=== PATIENT | male | born 1985 | race Caucasian/White ===

== ENCOUNTER 2016-12-19 12:17 | Emergency (ER) | payer OTHER ==
[~2016-12-19] VITALS: Ht 185.4 cm; Wt 99.8 kg
[~2016-12-19 12:17] MED LIST: AMOXIL500 MG PO; BACTRIM DS 8001 TAB PO; ENDOCET 325 MG-1 TA1 PO; MEDROL DOSEPAK1 PAC PO; PERCOCET 5-3251 EACH PO; PROAIR HFA0.09 MG/Ac INH; VISTARIL50 M1 PO
[2016-12-19 12:49] LABS: ABSOLUTE BASOPHIL COUNT 0 /CUMM (0.0-0.2); ABSOLUTE EOSINOPHIL COUNT 0 /CUMM (0.0-0.7); ABSOLUTE GRANULOCYTE CT 4.3 /CUMM (1.4-6.5); ABSOLUTE MONOCYTE COUNT 0.4 /CUMM (0.10-0.60); BASOPHIL % 0.2 % (0.0-2.0); EOSINOPHIL % 0.2 % (0-5); GRANULOCYTE % 75.5 % (42.2-75.2); HEMATOCRIT 42.1 % (42-52); MEAN CORPUSCULAR HGB 39.4 PG (27.0-31.0); MEAN CORPUSCULAR HGB CONC 34.3 G/DL (33.0-37.0); MEAN CORPUSCULAR VOLUME 114.9 FL (80.0-94.0); MEAN PLATELET VOLUME 7.8 FL (7.4-10.4); PLATELET COUNT 163 /CUMM (130-400); RED BLOOD CELL CT 3.67 /CUMM (4.70-6.10); WHITE BLOOD CELL COUNT 5.7 /CUMM (4.8-10.8)
--- NOTE | 2016-12-19 13:22 | ED GI/GU/ABDOMINAL COMPLAINT ---
History of Present Illness General Chief Complaint: Nausea, Vomiting, Diarrhea Stated Complaint: VOMITING X 2WEEKS Source: patient Exam Limitations: no limitations Vital Signs & Intake/Output Vital Signs & Intake/Output Vital Signs Date Time Temp Pulse Resp B/P B/P Pulse O2 O2 Flow FiO2 Mean Ox Delivery Rate 12/19 1617 99.5 112 18 153/92 12/19 1616 99.5 112 20 153/92 98 Room Air 12/19 1418 98.8 112 18 135/69 12/19 1356 98.8 112 18 135/69 99 Room Air 12/19 1324 Room Air 12/19 1223 98.1 133 20 137/99 97 Room Air Allergies Coded Allergies: NO KNOWN ALLERGIES (UNKNOWN 12/19/16) Reconcile Medications Duloxetine HCl (Cymbalta) 60 MG CAPSULE.DR 1 CAP PO DAILY UNKNOWN (Reported) Gabapentin (Neurontin) 300 MG CAPSULE 2 CAP PO TID UNKNOWN (Reported) Methamphetamine HCl (Desoxyn) 5 MG TABLET 2 TAB PO DAILY UNKNOWN (Reported) Methamphetamine HCl (Desoxyn) 5 MG TABLET 1 TAB PO 1200 UNKNOWN (Reported) Triage Note: PT STATES HE CAN'T KEEP SOLIDS DOWN X 1 WEEK. STATES YESTERDAY UNABLE TO KEEP FLUIDS DOWN. STATES TODAY VOMITING DARK RED BLOOD. STATES LEGS ARE NUMB FROM THE KNEES DOWN. PT STATES +ABDOMINAL PAIN AND DIARRHEA Triage Nurses Notes Reviewed? yes HPI: 30 yo M with past medical history of asthma, alcohol dependance, alcohol withdrawal seizure, ADHD, and current smoker is here for one week history of nausea, unable to tolerate solid food, and not tolerating liquids since one day (yesterday). He reported vomitting 17 times yesterday, and this morning, he had about a small cup-full of fresh red blood in his vomitus. This is associated with vague lower abdomen pain, and also feeling feverish, sweating, but temperature was not recorded. He had dark urine this morning. He admits to feeling to bit dizzy, as he is not eating/drinking well, but denies chest pain, shortness of breath, diarrhea, constipation, black/red/pale stools, yellowish coloration of skin, eating outside, headache, recent travel, or sick contacts. 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 Of note, he has been drinking beer daily and his last drink was yesterday. He initially reported to have drank 12 beers the day before and none yesterday. He is anxious and has tremors. He also had injury to his right ankle two months ago for which he went to [facility] and was diagnosed to have compartment syndrome but did not require fasciotomy. Since then, he has been having patchy area of numbness/ decreased sensation over right foot. (BRITTANY CURRIE MD) Past History Travel History Traveled to [facility] [place] past 21 day No Medical History Any Pertinent Medical History? 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 No (BRITTANY CURRIE MD) Review of Systems Review of Systems Constitutional: Reports: chills, diaphoresis. Denies: fever, malaise, weakness. EENTM: Reports: no symptoms. Respiratory: Reports: no symptoms. Cardiovascular: Reports: no symptoms. GI: Reports: see HPI (BLOOD IN VOMITUS), abdominal pain, nausea, vomiting. Denies: bloating, constipation, diarrhea, distention, bowel incontinence, melena, bloody stool, changes in stool. Genitourinary: Reports: no symptoms. Musculoskeletal: Reports: back pain (CHRONIC). Skin: Reports: see HPI, erythema. Denies: jaundice. Neurological/Psychological: Reports: anxiety. Hematologic/Endocrine: Reports: no symptoms. All Other Systems: Reviewed and Negative (BRITTANY CURRIE MD) Physical Exam Physical Exam General Appearance: well developed/nourished, alert, awake, anxious Head: atraumatic, normal appearance Eyes: Bilateral: PERRL, EOMI, other (jaundice). Ears, Nose, Throat, Mouth: hearing grossly normal, moist mucous membrane Neck: normal inspection, supple, full range of motion, normal alignment Respiratory: no respiratory distress, wheezing (B/L) Cardiovascular: regular rate/rhythm Gastrointestinal: normal bowel sounds, soft, no organomegaly, MILD TENDERNESS OVER RUQ, NO REBOUND Back: normal inspection, normal range of motion, vertebral tenderness (LOW BACK) Neurologic/Psych: awake, alert, oriented x 3, normal gait, RT FOOT HAS NUMB AREA OVER THE DORSAL SIDE, WHICH IS NOT NEW TO THE PT Skin: intact, warm/dry, BLANCHING ERYTHEMA OVER THE EXTREMITIES B/L Core Measures ACS in differential dx? No Severe Sepsis Present: No Septic Shock Present: No (ROSEY HALL,BRITTANY) Progress Differential Diagnosis: biliary colic, cholecystitis, gastritis, hepatitis, Blanca-Charly tear, pancreatitis, peptic ulcer, alcohol withdrawal, alcoholic gastritis Plan of Care: Orders Procedure Date/time Status LACTIC ACID 12/19 1525 Complete URINALYSIS 12/19 1232 Complete LIPASE 12/19 1225 Complete LACTIC ACID 12/19 1225 Complete COMPREHENSIVE METABOLIC PANEL 12/19 1225 Complete CBC WITHOUT DIFFERENTIAL 12/19 1225 Complete AMYLASE 12/19 1225 Complete CIWA 12/19 UNK Active Current Medications Sig/Fany Start time Last Medication Dose Stop Time Status Admin Cyanocobalamin/ 1 BAG ONCE ONE 12/19 1315 AC Thiamine/Pyridoxine 12/19 2114 (Vitamin in I.V.) Dextrose/Water 1,000 ML (D5W 1000) Ondansetron HCl 4 MG Q6P PRN 12/19 1315 AC 12/19 (Zofran) 1326 Laboratory Tests 12/19/16 1525: Lactic Acid 1.6 12/19/16 1438: Urinalysis LIGHT H, Urine Color KYLAH, Urine Clarity HAZY H, Urine pH 7.5, Ur Specific [place] 1.015, Urine Protein 30 H, Urine Ketones 15 H, Urine Nitrite POS H, Urine Bilirubin NEG@ICTO, Urine Urobilinogen >=8.0 H, Ur Leukocyte Esterase TRACE H, Ur Microscopic SEDIMENT EXAMINED, Urine RBC RARE, Urine WBC RARE, Ur Epithelial Cells RARE, Urine Bacteria MANY H, Granular Casts 5-10 H, Urine Mucus MANY H, Urine Hemoglobin NEG, Urine Glucose NEG 12/19/16 1235: Anion Gap 13, Estimated GFR > 60, BUN/Creatinine Ratio 12.9, Glucose 123 H, Lactic Acid 3.3 H, Calcium 9.3, Total Bilirubin 1.6 H, AST 78 H, ALT 48, Alkaline Phosphatase 128 H, Total Protein 6.7, Albumin 3.5, Globulin 3.2, Albumin/Globulin Ratio 1.1, Amylase 36, Lipase 64, CBC w Diff NO MAN DIFF REQ, RBC 3.67 L, MCV 114.9 H, MCH 39.4 H, RDW 15.0 H, MPV 7.8, Gran % 75.5 H, Lymphocytes % 17.5 L, Monocytes % 6.6, Eosinophils % 0.2, Basophils % 0.2, Absolute Granulocytes 4.3, Absolute Lymphocytes 1.0 L, Absolute Monocytes 0.4, Absolute Eosinophils 0, Absolute Basophils 0, PUBS MCHC 34.3 Initial ED EKG: none (BRITTANY CURRIE MD) Departure Departure Disposition: STILL A PATIENT Condition: Stable Clinical Impression Primary Impression: Gastroenteritis Secondary Impressions: Alcohol dependence Qualifiers: Substance use status: in withdrawal Complication of substance- induced condition: uncomplicated Qualified Code: F10.230 - Alcohol dependence with withdrawal, uncomplicated Hematemesis without nausea Referrals: SUJEY DAVIS DO (PCP/Family) Departure Forms: Customer Survey General Discharge Information Comments Patient was receiving IV fluids boluses 1L x3 and a repeat Lactic Acid level when I signed-out to Dr Spicer. Dr. Spicer is aware of the condition and will follow in the ED. (BRITTANY CURRIE MD) Departure Comments 12/19/16 6:30 PM 30-year-old male with a history of alcohol abuse and dependency presented with vomiting including an episode of hematemesis. His CIWA scores reached 15. He declined admission and signed out AGAINST MEDICAL ADVICE. He was given Ativan taper. He was given the contact number for [facility]. He was told to follow up with GI. He was put on omeprazole. He will return if worse (BETH SPICER DO
[2016-12-19] MEDS ORDERED: NEURONTIN300 M1 PO (14:08)
[2016-12-19] MEDS ORDERED: DESOXYN5 MG PO ×2 (14:12)
[2016-12-19] MEDS ORDERED: CYMBALTA60 M1 PO (14:13)
[2016-12-19 16:17] VITALS: BP 153/92
[2016-12-19] MEDS ORDERED: ATIVAN1 M1 PO (18:29)
[2016-12-19] MEDS ORDERED: OMEPRAZOLE40 M1 PO (18:29)
== END 2016-12-19 18:49 | disposition left against medical advice (07) ==
LOC: ERH 12:17
PROVIDERS: Emergency Medicine
DX: K52.9 Noninfective gastroenteritis and colitis, unspecified (principal); F10.20 Alcohol dependence, uncomplicated; K92.0 Hematemesis
CPT/HCPCS: 81001; 96374; 96375; J2405; J7060

== ENCOUNTER 2016-12-27 14:41 | Emergency (ER) | payer OTHER ==
[~2016-12-27] VITALS: Ht 182.9 cm; Wt 99.8 kg
[~2016-12-27 14:41] MED LIST changes: +ATIVAN1 M1 PO; +CYMBALTA60 M1 PO; +DESOXYN5 MG PO; +NEURONTIN300 M1 PO; +OMEPRAZOLE40 M1 PO
--- NOTE | 2016-12-27 15:45 | ED ANIMAL BITE/WOUND CHECK ---
History of Present Illness General Chief Complaint: Animal/Insect Bite Stated Complaint: BITES BY RACOON YESTERDAY ON ARMS BILAT Source: patient Exam Limitations: no limitations Vital Signs & Intake/Output Vital Signs & Intake/Output Vital Signs Date Time Temp Pulse Resp B/P B/P Pulse O2 O2 Flow FiO2 Mean Ox Delivery Rate 12/27 1649 97.5 94 18 134/88 97 Room Air Room Air 12/27 1444 97.8 106 18 138/87 96 Room Air Allergies Coded Allergies: NO KNOWN ALLERGIES (UNKNOWN 12/19/16) Triage Note: PT TO TRIAGE FOR RABIES VACCINATION.PT WAS BITTEN AND SCRATHCED BY RACOON LAST NIGHT, MULTIPLE SCRATCHES TO BILAT UPPER EXTREMITY NOTED. RACOON SENT TO [facility] FOR TESTING. Triage Nurses Notes Reviewed? yes Onset: Abrupt Duration: day(s): (1), constant, continues in ED, getting worse Timing: single episode today Injury Environment: home Is Injury an Animal Bite? Yes Animal Type: racoon Context of Animal Attack: unprovoked attack Appearance of Animal: unknown Animal Immunization Status: unknown Observation/Capture: animal captured/killed Severity of Attack: bitten, scratched Severity: mild, moderate Severity Numbers: 7 No Modifying Factors: none HPI: 30-year-old male to history of anxiety presents for evaluation after being attacked by a raccoon last night. he reports he caught a raccoon in a squirrel trap and when he was trying to release the animal it began to attack him. Patient points the animal bit him on his bilateral hands and scratched up his forearms. She reports pain in both of his hands and forearms that does not radiate. He pain is 7 out of 10. He is not taking any medicine for the pain. He is up-to-date on tetanus. He denies any fevers, additional injuries, shortness of breath, discharge, chest pain, headaches or any other associated symptoms. The raccoon killed by the patient and was turned over to animal control for testing. (IVAN GUERRIER,ROBERT) Reconcile Medications Amoxicillin/Potassium Clav (Augmentin 875-125 Tablet) 875 MG-125 MG TABLET 1 TAB PO BID animal bite Amoxicillin/Potassium Clav (Augmentin 875-125 Tablet) 875 MG-125 MG TABLET 1 TAB PO BID animal bite Duloxetine HCl (Cymbalta) 60 MG CAPSULE.DR 1 CAP PO DAILY UNKNOWN (Reported) Gabapentin (Neurontin) 300 MG CAPSULE 2 CAP PO TID UNKNOWN (Reported) Lorazepam (Ativan) 1 MG TABLET 1 TAB PO DAILY WITHDRAWL 1 TAB EVERY 8 HOURS X 3 DAYS, THEN 1 TAB EVERY 12 HOURS X 3 DAYS, THEN 1 TAB DAILY FOR 3 DAYS, THEN STOP Methamphetamine HCl (Desoxyn) 5 MG TABLET 2 TAB PO DAILY UNKNOWN (Reported) Methamphetamine HCl (Desoxyn) 5 MG TABLET 1 TAB PO 1200 UNKNOWN (Reported) Omeprazole 40 MG CAPSULE.DR 1 CAP PO DAILY PRN DAILY (MICHAEL HALL,CHRISTOPHER) Past History Travel History Traveled to [place] past 21 day No Medical History Any Pertinent Medical History? 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 No (IVAN GUERRIER,ROBERT) Review of Systems Review of Systems Constitutional: Reports: no symptoms. EENTM: Reports: no symptoms. Respiratory: Reports: no symptoms. Cardiovascular: Reports: no symptoms. GI: Reports: no symptoms. Genitourinary: Reports: no symptoms. Musculoskeletal: Reports: no symptoms. Skin: Reports: see HPI (multiple lacerations). Neurological/Psychological: Reports: no symptoms. Hematologic/Endocrine: Reports: no symptoms. Immunologic/Allergic: Reports: no symptoms. All Other Systems: Reviewed and Negative (IVAN GUERRIER,ROBERT) Physical Exam Physical Exam General Appearance: well developed/nourished, no apparent distress, alert, awake , comfortable Head: atraumatic, normal appearance Eyes: Bilateral: normal appearance, PERRL, EOMI. Ears, Nose, Throat: normal pharynx, normal ENT inspection, hearing grossly normal Neck: normal inspection, supple, full range of motion Respiratory: normal breath sounds, chest non-tender, no respiratory distress, lungs clear Cardiovascular: regular rate/rhythm, normal peripheral pulses Peripheral Pulses: 2+ radial (R), 2+ radial (L) Gastrointestinal: normal bowel sounds, soft, non-tender, no organomegaly Back: normal inspection, normal range of motion, no vertebral tenderness Extremities: normal range of motion, evidence of injury, there are 2 puncture wounds located on the palmar aspect of the base of the first metacarpal bilaterally. There is some surrounding erythema and edema. there are multiple superficial lacerations located on both anterior forearms. There is some associated erythema and soft tissue swelling. No discharge no focal fluctuant areas. Neurovascular supply is intact. No lymphatic streaking. Full range of motion of the upper extremities is intact. Neurologic/Psych: no motor/sensory deficits, awake, alert, oriented x 3, normal gait, normal mood/affect Reflexes: 2+: knee (R), knee (L). Skin: intact, normal color, warm/dry Lymphatic: no anterior cervical aspen (ROBERT LOVE PA-C) Progress Differential Diagnosis: abscess, cellulitis, joint infection, tenosysnovitis, rabies, wound infection Plan of Care: Current Medications Sig/Fany Start time Last Medication Dose Stop Time Status Admin Rabies Immune 2,000 UNITS ONCE ONE 12/27 1600 UNVr Globulin 12/27 1601 (Rabies Immune Globlulin Inj) Rabies Vaccine 1 SYR ONCE ONE 12/27 1600 UNVr (Rabies (Vaccine) 12/27 1601 Inj (1ML)) There are puncture wounds on the palmar aspect of both hands. There are multiple superficial lacerations on both forearms. Patient is up-to-date on tetanus. Patient will be treated with Augmentin twice a day for 10 days and he' ll be given the rabies vaccine immunoglobulin. If the animal test negative the rabies vaccine can be discontinued. Review treatment plan with patient and he agrees with the plan. He is currently afebrile and nontoxic appearing. Skin wound care instructions with patient. (ROBERT LOVE PA-C) Departure Departure Disposition: HOME OR SELF CARE Condition: Stable Clinical Impression Primary Impression: Bitten by raccoon, initial encounter Referrals: SUJEY DAVIS DO (PCP/Family) Additional Instructions: Keep the wounds clean and dry. Take antibiotics as directed for the full course and take a probiotic to place healthy bacteria. Use Tylenol or ibuprofen every 6 hours as needed for pain. Return to the emergency department for additional doses of the rabies vaccine. You will need to return for department in 3 days, 7 days, and 14 days for additional rabies vaccinations. K follow-up appointment with her primary care doctor for a wound check this week. Return to emergency department sooner with any concerns. Please go over all results of today's visit with your primary care doctor. Contact your primary care doctor to let them know you were here in the emergency room. There may be nonspecific findings which may not be related to your visit today here in the emergency room but may require further evaluation and chronic monitoring by your primary care doctor. If you had a laceration today the chance of foreign body always remains. You should follow-up with your primary care doctor for recheck in 3-5 days for a wound check. If you had an x-ray done there is a chance that a fracture could have been missed on initial read and you should follow-up with your primary care doctor for repeat x-rays if symptoms persist. If your blood pressure was elevated here in the emergency room please have rechecked by her primary care doctor within the next 48 hours by your primary care doctor. If you were prescribed a narcotic here in the emergency room or any type of controlled substances you're not allowed to drive while taking this medication or operate any type of heavy machinery. Narcotics can make you feel lightheaded dizziness nausea and can cause constipation. You may need to pickle maker a stool softener. Thank you for choosing [facility] emergency room. Please return to the emergency room immediately if you have any other concerns worsening of symptoms. Departure Forms: Customer Survey General Discharge Information (ROBERT LOVE PA-C) Departure Prescriptions: Current Visit Scripts Amoxicillin/Potassium Clav (Augmentin 875-125 Tablet) 1 TAB PO BID #20 TAB Amoxicillin/Potassium Clav (Augmentin 875-125 Tablet) 1 TAB PO BID #20 TAB PA/SENIOR NUCLEAR MEDICINE TECHNOLOGIST Co-Sign Statement Statement: ED Attending supervision documentation- [] I saw and evaluated the patient. I have also reviewed all the pertinent lab results and diagnostic results. I agree with the findings and the plan of care as documented in the PA's/SENIOR NUCLEAR MEDICINE TECHNOLOGIST's documentation. [X] I have reviewed the ED Record and agree with the PA's/SENIOR NUCLEAR MEDICINE TECHNOLOGIST's documentation. [] Additions or exceptions (if any) to the PAs/SENIOR NUCLEAR MEDICINE TECHNOLOGIST's note and plan are summarized below: [] (MICHAEL HALL,CHRISTOPHER)
[2016-12-27] MEDS ORDERED: AUGMENTIN 875-1 EACH PO ×2 (16:03→16:53)
[2016-12-27 16:49] VITALS: BP 134/88
== END 2016-12-27 16:55 ==
LOC: ERH 14:41
DX: S61.451A Open bite of right hand, initial encounter (principal); S61.452A Open bite of left hand, initial encounter; S50.811A Abrasion of right forearm, initial encounter; S50.812A Abrasion of left forearm, initial encounter; W55.51XA Bitten by raccoon, initial encounter; Y93.89 Activity, other specified; Y92.9 Unspecified place or not applicable
CPT/HCPCS: 90376; 90471; 96372

== ENCOUNTER 2016-12-29 11:12 | Emergency (ER) | payer OTHER ==
[~2016-12-29] VITALS: Ht 182.9 cm; Wt 99.8 kg
[~2016-12-29 11:12] MED LIST changes: +AUGMENTIN 875-1 EACH PO
[2016-12-29 11:18] VITALS: BP 119/86
--- NOTE | 2016-12-29 11:54 | ED GENERAL ADULT ---
History of Present Illness General Chief Complaint: General Adult Stated Complaint: 3RD RABIES SHOT Source: patient Exam Limitations: no limitations Vital Signs & Intake/Output Vital Signs & Intake/Output Vital Signs Date Time Temp Pulse Resp B/P B/P Pulse O2 O2 Flow FiO2 Mean Ox Delivery Rate 12/29 1118 98.7 128 18 119/86 98 Allergies Coded Allergies: NO KNOWN ALLERGIES (UNKNOWN 12/19/16) Reconcile Medications Amoxicillin/Potassium Clav (Augmentin 875-125 Tablet) 875 MG-125 MG TABLET 1 TAB PO BID animal bite Amoxicillin/Potassium Clav (Augmentin 875-125 Tablet) 875 MG-125 MG TABLET 1 TAB PO BID animal bite Duloxetine HCl (Cymbalta) 60 MG CAPSULE.DR 1 CAP PO DAILY UNKNOWN (Reported) Gabapentin (Neurontin) 300 MG CAPSULE 2 CAP PO TID UNKNOWN (Reported) Lorazepam (Ativan) 1 MG TABLET 1 TAB PO DAILY WITHDRAWL 1 TAB EVERY 8 HOURS X 3 DAYS, THEN 1 TAB EVERY 12 HOURS X 3 DAYS, THEN 1 TAB DAILY FOR 3 DAYS, THEN STOP Methamphetamine HCl (Desoxyn) 5 MG TABLET 2 TAB PO DAILY UNKNOWN (Reported) Methamphetamine HCl (Desoxyn) 5 MG TABLET 1 TAB PO 1200 UNKNOWN (Reported) Omeprazole 40 MG CAPSULE.DR 1 CAP PO DAILY PRN DAILY Triage Note: PT IS ON 3RD DAY OF RABIES SERIES. WOUNDS FROM RACOON ARE HEALING. PT OFFERS NO COMPLAINTS Triage Nurses Notes Reviewed? yes Onset: Abrupt Duration: constant Timing: recent history Severity: moderate Severity Numbers: 5 HPI: Patient is a 30-year-old male who presents emergency room with requests of second rabies vaccine where he was evaluated 3 days ago at [facility] emergency room for concerns of a encounter with a raccoon where the raccoon bit patient to left hand and multiple excoriations occurred after the raccoon at scratch patient's bilateral forearms. Patient received initial rabies immunoglobin and vaccine and patient was given Augmentin which she is currently compliant with patient does state that he is awaiting animal control for results of rabies in which the raccoon was killed and sent that day. Patient denies any fever chills and is otherwise without complaints. Patient is up-to-date on his tetanus. Past History Travel History Traveled to [place] past 21 day No Medical History Any Pertinent Medical History? 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 No Review of Systems Review of Systems Constitutional: Reports: no symptoms. EENTM: Reports: no symptoms. Respiratory: Reports: no symptoms. Cardiovascular: Reports: no symptoms. GI: Reports: no symptoms. Genitourinary: Reports: no symptoms. Musculoskeletal: Reports: no symptoms. Skin: Reports: see HPI. Neurological/Psychological: Reports: no symptoms. Hematologic/Endocrine: Reports: no symptoms. Immunologic/Allergic: Reports: no symptoms. All Other Systems: Reviewed and Negative Physical Exam Physical Exam General Appearance: no apparent distress, alert, comfortable Comments: Well-developed well-nourished no apparent distress. HEENT: Atraumatic, extraocular motion intact Neck: Supple, no lymphadenopathy Back: Nontender Respiratory: No respiratory distress Extremities: Bilateral upper extremities full active range of motion noted multiple superficial excoriations of linear shape no active bleeding no erythema no warmth no active discharge. Noted to puncture wounds to the palmar aspect of first metacarpal region of hand. No erythema no warmth. Neuro: Alert and oriented x3 Psych: Mood affect normal, normal memory normal judgment. Core Measures ACS in differential dx? No CVA/TIA Diagnosis: No Severe Sepsis Present: No Septic Shock Present: No Progress Differential Diagnoses I considered the following diagnoses in my evaluation of the patient: [RABIES, cellulitis, fracture,] Plan of Care: Patient has no concerns of infection at this point patient was strongly advised to return to emergency room if rabies results are positive which he will find out today. No concerns of allergic reaction to tetanus Initial ED EKG: none Departure Departure Disposition: HOME OR SELF CARE Condition: Stable Clinical Impression Primary Impression: Raccoon bite Secondary Impressions: Struck by raccoon Referrals: SUJEY DAVIS DO (PCP/Family) Additional Instructions: As discussed continue previously prescribed Augmentin as directed for infection prevention. If animal control calls and the raccoon was negative for rabies you do not need series of rabies injections in the future however if it is positive return to the emergency room as directed from initial visit. If you note signs of infection redness, pain, swelling, discharge return to the emergency room immediately. Departure Forms: Customer Survey General Discharge Information Critical Care Note Critical Care Note Critical Care Time: non-applicable
== END 2016-12-29 12:16 ==
LOC: ERH 11:12
DX: Z23 Encounter for immunization (principal)
CPT/HCPCS: 90471; 99281

== ENCOUNTER 2017-01-14 12:03 | Emergency (ER) | payer OTHER ==
[~2017-01-14] VITALS: Ht 182.9 cm; Wt 99.8 kg
[2017-01-14 12:08] VITALS: BP 121/75
--- NOTE | 2017-01-14 12:19 | ED ANIMAL BITE/WOUND CHECK ---
History of Present Illness General Chief Complaint: General Adult Stated Complaint: LAST RABIES SHOT, & RASH ON GROIN AREA Source: patient Exam Limitations: no limitations Vital Signs & Intake/Output Vital Signs & Intake/Output Vital Signs Date Time Temp Pulse Resp B/P B/P Pulse O2 O2 Flow FiO2 Mean Ox Delivery Rate 01/14 1208 98.8 118 18 121/75 98 Room Air Allergies Coded Allergies: NO KNOWN ALLERGIES (UNKNOWN 12/19/16) Reconcile Medications Duloxetine HCl (Cymbalta) 60 MG CAPSULE.DR 1 CAP PO DAILY UNKNOWN (Reported) Gabapentin (Neurontin) 300 MG CAPSULE 2 CAP PO TID UNKNOWN (Reported) Methamphetamine HCl (Desoxyn) 5 MG TABLET 2 TAB PO DAILY UNKNOWN (Reported) Methamphetamine HCl (Desoxyn) 5 MG TABLET 1 TAB PO 1200 UNKNOWN (Reported) Omeprazole 40 MG CAPSULE.DR 1 CAP PO DAILY PRN DAILY Triage Note: 31 YO MALE TO ER FOR LAST RABIES SHOT AND "JOCK ITCH" Triage Nurses Notes Reviewed? yes Onset: Gradual Duration: constant Timing: recent history Injury Environment: home HPI: Patient is a 31-year-old male who presents to emergency room with a 1 week history of gradually worsening bilateral groin red itching complaints where he believes he has jock itch. Patient has been trying itep-tce-hxpurwz antifungal medications with minimal relief of symptoms. Denies any fever chills testicular pain or swelling dysuria or hematuria discharge or swelling. Patient also is requesting his last rabies vaccine in which HE was bitten and scratched multiple occasions to his bilateral forearms approximately 2 weeks ago by a raccoon where the raccoon was sent to animal control however tests were noted to be negative for rabies however patient still request his set of rabies vaccines. Denies any adverse reaction from the previous rabies injections. (TRINY ANGUIANO) Past History Travel History Traveled to [place] past 21 day No Medical History Any Pertinent Medical History? 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 No (TRINY ANGUIANO) Review of Systems Review of Systems Constitutional: Reports: no symptoms. EENTM: Reports: no symptoms. Respiratory: Reports: no symptoms. Cardiovascular: Reports: no symptoms. GI: Reports: no symptoms. Genitourinary: Reports: see HPI. Musculoskeletal: Reports: no symptoms. Skin: Reports: see HPI. Neurological/Psychological: Reports: no symptoms. Hematologic/Endocrine: Reports: no symptoms. Immunologic/Allergic: Reports: no symptoms. All Other Systems: Reviewed and Negative (TRINY ANGUIANO) Physical Exam Physical Exam General Appearance: no apparent distress, alert, comfortable Comments: Well-developed well-nourished person in no acute distress HEENT: Normal EENT exam, Neck: Supple, no lymphadenopathy, normal range of motion without pain or tenderness Back: Nontender, no CVA tenderness. Cardiovascular: Regular rate and rhythms no murmurs rubs or gallops, normal JVP Respiratory: Chest nontender. No respiratory distress.breath sounds clear to auscultation bilaterally Abdomen: Soft, nontender nondistended, no appreciable organomegaly. Normal bowel sounds. No ascites Extremity: No edema, no calf tenderness to palpation, normal and equal pulses. Neuro: Alert oriented x3, motor sensory normal, Psych: Mood and affect is normal, memory and judgment is normal. Diagram Body: 1) Noted inguinal beefy-red tender warm rash no discharge no induration no fluctuance 2) Noted inguinal beefy-red tender warm rash no discharge no induration no fluctuance (TRINY ANGUIANO) Progress Differential Diagnosis: abscess, cellulitis, joint infection, tenosysnovitis, TINEA CRURIS, ABSCESS, SEPSIS Plan of Care: Current Medications Sig/Fany Start time Last Medication Dose Stop Time Status Admin Rabies Vaccine 1 SYR ONCE ONE 01/14 1230 AC (Rabies (Vaccine) 01/14 1231 Inj (1ML)) Patient on exam has concerns of tinea cruris No concerns of abscess cellulitis patient was strongly advised to follow-up with discharge instructions and plan and he will comply (TRINY ANGUIANO) Departure Departure Disposition: HOME OR SELF CARE Condition: Stable Clinical Impression Primary Impression: Tinea cruris Secondary Impressions: Probable rabies Referrals: SUJEY DAVIS DO (PCP/Family) Additional Instructions: As discussed begin gyft-wew-iwwadpf antifungal creams or powders such as nystatin Lotrimin or Lamisil for your symptoms and apply as directed. Keep the region dry as possible after washing. If no better in one week follow-up with your primary care doctor. If symptoms worsen return to the emergency room you have received last dose of rabies vaccine today in the emergency room Departure Forms: Customer Survey General Discharge Information (TRINY ANGUIANO) PA/CALENDAR CONTROL CLERK BLOOD BANK Co-Sign Statement Statement: ED Attending supervision documentation- I saw and evaluated the patient. I have also reviewed all the pertinent lab results and diagnostic results. I agree with the findings and the plan of care as documented in the PA's/CALENDAR CONTROL CLERK [employer]LO[employer] BANK's documentation. x I have reviewed the ED Record and agree with the PA's/CALENDAR CONTROL CLERK [employer]LO[employer] BANK's documentation. [] Additions or exceptions (if any) to the PAs/CALENDAR CONTROL CLERK [employer]LOOD BANK's note and plan are summarized below: [] (ANA HALL,TONYA)
== END 2017-01-14 12:38 ==
LOC: ERH 12:03
DX: B35.6 Tinea cruris (principal); Z20.3 Contact with and (suspected) exposure to rabies